=== PATIENT | male | born 1985 ===

== ENCOUNTER 2025-01-26 10:34 | Emergency (ER) | payer OTHER ==
[~2025-01-26] VITALS: Ht 195.6 cm; Wt 137.3 kg
[2025-01-26 10:36] VITALS: BP 145/101; PULSE 92; RESP 16; TEMP 97.2; O2SAT 99
--- NOTE | 2025-01-26 11:03 | Physician Documentation ---
History of Present Illness ~ Chief Complaint: Foot pain Stated Complaint: L FOOT PAIN WC Time Seen by MD: 10:40 OK to notify your PCP?: Yes Primary Medical Doctor: melanie wells Source: patient Mode of Arrival: POV Exam Limitations: no limitations HPI 39-year-old male while at work yesterday had the ramp/back of a trailer land on his left foot causing bruising and pain. Patient was instructed today due to it being a workman's comp injury to have an initial evaluation. Patient was sent to the ER. Tetanus witin 5 years: Yes Medication Reconciliation Allergies: Coded Allergies: No Known Allergies (Unverified , 01/26/25) Past Medical History Past Medical History: No Pertinent History Past Surgical History: no surgical history Review of Systems All Other Systems at this time: Reviewed and Negative Musculoskeletal: Reports: see HPI Physical Exam Vital Signs: RN Vital Signs have been reviewed: Yes, Temperature: 97.2, Source: Temporal, Heart Rate: 92, Respiratory Rate: 16, BP: 145/101, Pulse Oximetry: 99, Weight: 137.270 Oxygen Flow Rate: 0 General Appearance: alert, WD/WN, no apparent distress Progress Results/Orders Results/Orders Orders - MARIAMA COE MASTER CONTROL OPERATOR Foot, Complete (3vw Min) (01/26/25 10:45) Completed Orders - MARIAMA COE MASTER CONTROL OPERATOR Foot, Complete (3vw Min) (01/26/25 10:45) Vital Signs 01/26/25 10:36 Temp 97.2 Pulse 92 Resp 16 B/P (MAP) 145/101 Pulse Ox 99 O2 Flow Rate 0 EKG/XRAY/CT/US/VASC/MRI Bone/Soft Tissue X-Ray (Ext.) : Additional Comment CLINICAL INDICATION: left foot pain after dropping ramp on foot TECHNIQUE: 3 radiographic views of the left foot were obtained. Comparison: None FINDINGS/IMPRESSION: Nondisplaced fracture of the 1st proximal phalanx. Medical Decision Making Findings With a heavy Medical ramp proximally knee-high on his toe differentials include fracture, and contusion. Postop shoe fractured to toe General Diff Dx:Considerations: Include: Abrasion, Contusion, Fracture, Sprain, Other Departure Time of Disposition: 11:46 Disposition: 01 HOME / SELF CARE / HOMELESS Impression: Primary Impression: Fracture of foot Condition: Stable Discharge Instructions: Fracture, Foot Additional Instructions: Workman's comp initial visit completed. Follow up with your employer as well as workman's comp clinic for further treatment and evaluation. CLINICAL INDICATION: left foot pain after dropping ramp on foot TECHNIQUE: 3 radiographic views of the left foot were obtained. Comparison: None FINDINGS/IMPRESSION: Nondisplaced fracture of the 1st proximal phalanx. Departure Forms: Excuse form Work or School Excused From: Work May Return but still avoid physical Activity from now until: Jan 26, 2025 Additional Instructions: Reduced amount of time on feet Referrals: NO PRIMARY CARE PROVIDER (PCP) Education Educated: Patient Educated regarding: diagnosis, treatment, need for follow up Signature Scribe Signature: No scribe Attestation: The note accurately reflects work and decisions made by me.Mariama SYED 01/26/25 11:04 MARIAMA COE NP Jan 26, 2025 11:03
--- NOTE | 2025-01-26 11:18 | RADIOLOGY REPORT ---
CLINICAL INDICATION: left foot pain after dropping ramp on foot TECHNIQUE: 3 radiographic views of the left foot were obtained. Comparison: None FINDINGS/IMPRESSION: Nondisplaced fracture of the 1st proximal phalanx.
== END 2025-01-26 11:55 | disposition home or self-care (01) ==
LOC: ER 10:35
DX: S92.415A Nondisplaced fracture of proximal phalanx of left great toe, initial encounter for closed fracture (principal); X58.XXXA Exposure to other specified factors, initial encounter; Y93.89 Activity, other specified; Y92.89 Other specified places as the place of occurrence of the external cause; Y99.0 Civilian activity done for income or pay
CPT/HCPCS: 73630; 99283; L3260